=== PATIENT | male | born 1975 | race Two or more races ===

== ENCOUNTER 2018-07-28 13:21 | Emergency (ER) | payer OTHER ==
[~2018-07-28] VITALS: Ht 188 cm; Wt 104.9 kg
[2018-07-28] MEDS ORDERED: NALOXONE HCL 0.4 MG/ML AMPUL ONE (13:37)
[2018-07-28] MEDS ORDERED: ONDANSETRON HCL/PF 4 MG/2 ML VIAL ONE (13:37)
--- NOTE | 2018-07-28 13:45 | NUR ---
BIB [facility], PT WAS ALTERED IN LYFT CAR. PT ASLEEP, RESPONDING FROM STERNAL CHEST RUB. PLACED ON [employer] MANAGER. DR. VUONG @ BS FOR EVAL.
[2018-07-28 13:58] LABS: BASOPHILS % (AUTO) 0.4 % (0.0-2.0); EOSINOPHILS % (AUTO) 1.9 % (0.0-6.0); HEMATOCRIT 45 % (39-51); HEMOGLOBIN 15.1 g/dL (13.5-17.5); LYMPHOCYTES # (AUTO) 1.7 /CMM (0.8-4.8); LYMPHOCYTES % (AUTO) 15.5 % (20.0-44.0); MEAN CORPUSCULAR HGB CONC 34 g/dl (31.0-36.0); MEAN CORPUSCULAR VOLUME 87 fL (80-96); MONOCYTES # (AUTO) 0.6 /CMM (0.1-1.30); MONOCYTES % (AUTO) 6.1 % (2.0-12.0); NEUTROPHILS # (AUTO) 8.1 /CMM (1.8-8.9); NEUTROPHILS % (AUTO) 76.1 % (43.0-81.0); PLATELET COUNT (AUTO) 217 /CMM (150-450); RED BLOOD CELL COUNT(AUTO) 5.15 MIL/uL (4.5-6.0); WHITE BLOOD COUNT (AUTO) 10.6 K/uL (4.3-11.0)
[2018-07-28] MEDS ORDERED: ONDANSETRON HCL/PF 4 MG/2 ML VIAL IVP ONE (14:00)
[2018-07-28] MEDS ORDERED: NALOXONE HCL 0.4 MG/ML AMPUL IV ONE (14:00)
[2018-07-28] MEDS ORDERED: IV NS 0.9% 1,000 ML BAG IV ONE ×2 (14:00→14:30)
--- NOTE | 2018-07-28 14:04 | NUR ---
AFTER MEDICATED WITH 0.4 MG OF NARCAN, PT WOKE UP STARTED PULLING WIRES & IV LINE. PT STS " DON'T TOUCH ME ". AWARE.
[2018-07-28 14:18] LABS: ALANINE AMINOTRANSFERASE 31 U/L (12-78); ALBUMIN 3.5 g/dL (3.4-5.0); ALCOHOL, BLOOD < 3 mg/dL (0-0); ALKALINE PHOSPHATASE 103 U/L (46-116); ASPARTATE AMINOTRANSFERASE 20 U/L (15-37); BILIRUBIN,DIRECT 0.1 mg/dL (0.0-0.2); BILIRUBIN,TOTAL 0.1 mg/dL (0.2-1.0); CALCIUM, SERUM 8.8 mg/dL (8.5-10.1); CARBON DIOXIDE 30 mmol/L (21-32); CHLORIDE 107 mmol/L (98-107); CREATININE 1.2 mg/dL (0.6-1.3); GLUCOSE 108 mg/dL (74-106); POTASSIUM 4.3 mmol/L (3.5-5.1); SODIUM SERUM 144 mmol/L (136-145); TOTAL PROTEIN, SERUM 6.9 g/dL (6.4-8.2); UREA NITROGEN, BLOOD 22 mg/dL (7-18)
[2018-07-28] MEDS ORDERED: HALOPERIDOL LACTATE INJ 5 MG/ML VIAL ONE (14:19)
[2018-07-28] MEDS ORDERED: LORAZEPAM INJ 2 MG/ML VIAL ONE ×2 (14:20→14:22)
[2018-07-28] MEDS ORDERED: HALOPERIDOL LACTATE INJ 5 MG/ML VIAL IM ONE (14:30)
[2018-07-28] MEDS ORDERED: LORAZEPAM INJ 2 MG/ML VIAL IV ONE (14:30)
--- NOTE | 2018-07-28 15:01 | NUR ---
PT TO CT VIA [facility]
--- NOTE | 2018-07-28 15:15 | NUR ---
PT BACK FROM CT. PT ASLEEP, SNORING, CHEST RISE & FALL EQUALLY & JULIET. PLACED ON MANAGER ENVIRONMENTAL. O2 SAT 98% 2L, NO RESP DISTRESS NOTED @ THIS TIME & WILL CONT TO MONITOR.
[2018-07-28 15:40] LABS: APPEARANCE,URINE Clear (CLEAR); BILIRUBIN,URINE Negative (NEGATIVE); BLOOD, URINE Moderate Ery/uL (NEGATIVE); COLOR,URINE Yellow (YELLOW); KETONES,URINE Negative (NEGATIVE); LEUKOCYTE ESTERASE ,URINE Negative (NEGATIVE); NITRITE, URINE Negative (NEGATIVE); PH,URINE 7.5 (5.0-8.0); PROTEIN,URINE Negative (NEGATIVE); UGLUCOSE Negative (NEGATIVE)
[2018-07-28 15:46] LABS: BACTERIA,URINE Moderate /HPF (None Seen); SQUAMOUS EPITHELIAL CELL,UR Few /HPF (None Seen)
[2018-07-28 16:26] LABS: LIPASE 144 U/L (73-393)
[2018-07-28 16:33] LABS: TROPONIN I < 0.017 ng/mL (0.00-0.056)
--- NOTE | 2018-07-28 17:30 | NUR ---
Patient is resting comfortably in bed with eyes closed. Easily aroused. VSS
[2018-07-28 20:34] VITALS: BP 124/70
== END 2018-07-28 20:36 | disposition home or self-care (01) ==
LOC: ER 13:26
DX: R41.82 Altered mental status, unspecified (principal); F15.10 Other stimulant abuse, uncomplicated
CPT/HCPCS: 36415; 70450; 71045; 80048; 80076; 80305; 81001; 83690; 84484; 85025; 93005 ×2; 96361; 96374; 96375; 99285; A4606; G0480; J2060 ×2; J2310; J2405; J7030; Z7610; 81000-TC; 87086-TC; J1630